=== PATIENT | male | born 1995 | race Caucasian/White ===

== ENCOUNTER 2019-10-11 13:16 | Emergency (ER) | payer MEDICAID, OTHER ==
[~2019-10-11] VITALS: Ht 172.7 cm; Wt 82.0 kg
[~2019-10-11 13:16] MED LIST: AMOX500T2 PO
[2019-10-11] MEDS ORDERED: MORPHINE SULFATE 10 MG/ML CPJ IV ONE ×2 (14:30→15:15)
[2019-10-11] MEDS ORDERED: ONDANSETRON HCL 4MG/2ML INJ IV ONE (14:30)
[2019-10-11] MEDS ORDERED: PROPOFOL 200MG/20ML VIAL IV ONE ×2 (15:15→16:45)
[2019-10-11] MEDS ORDERED: SODIUM CHLORIDE 0.9% 1,000 ML IV ONE ×2 (15:15→16:45)
[2019-10-11] MEDS ORDERED: KETAMINE HCL 50 MG/ML 10ML IV ONE (15:15)
[2019-10-11 21:04] VITALS: BP 114/64
== END 2019-10-11 21:20 | disposition home or self-care (01) ==
LOC: ER 13:36
DX: S82.832A Other fracture of upper and lower end of left fibula, initial encounter for closed fracture (principal); S82.302A Unspecified fracture of lower end of left tibia, initial encounter for closed fracture; S93.05XA Dislocation of left ankle joint, initial encounter; J45.909 Unspecified asthma, uncomplicated; Z91.018 Allergy to other foods; W01.0XXA Fall on same level from slipping, tripping and stumbling without subsequent striking against object, initial encounter; Y93.89 Activity, other specified; Y99.8 Other external cause status; Y92.89 Other specified places as the place of occurrence of the external cause
CPT/HCPCS: 27840; 73600; 73610; 96374; 99152; 99285; J2270; J2405; J2704; J3490; J7030; Z7610; 96375; 96376